=== PATIENT | female | born 1945 | race Caucasian/White ===

== ENCOUNTER → 2016-07-27 | Outpatient (REF) | payer MEDICARE, MEDICAID | LOC: M SFHCLERA 16:01 | PROVIDERS: ATTEND Nurse Practitioner Family | DX: R50.9 Fever, unspecified (principal) ==

== ENCOUNTER → 2016-09-21 | Outpatient (CLI) | payer MEDICARE, MEDICAID ==
--- NOTE | 2016-09-21 15:03 | REP ---
Left knee MRI: The study is performed with proton density T2 and gradient echo weighted data sets in sagittal, axial and coronal projections. Comparison is the plain film study dated 09/09/2016. There is a joint effusion. There is a La's cyst measuring 4.5 cm craniocaudad by 1.8 cm transversely. There is soft tissue edema laterally involving the lateral retinaculum and lateral collateral ligament and subcutaneous soft tissues. This could be from direct trauma or retinacular and lateral collateral ligament sprain or combination. There is T2 signal adjacent to the medial collateral ligament compatible with medial collateral ligament sprain. The quadriceps and patellar tendons are unremarkable. There are suprapatellar plica outlined by the effusion. The anterior posterior cruciate ligaments are unremarkable. The anterior horn of the lateral meniscus is abnormal, decreased in size with T2 signal compatible with partial meniscectomy versus complex tear. Posterior horn of the lateral meniscus and body of the lateral meniscus are unremarkable. The medial meniscus is unremarkable. The patellar articular cartilage is heterogeneous compatible with chondromalacia. The patella is mildly subluxed laterally. The trochlear articular cartilage is unremarkable. The articular cartilage of the medial lateral compartments is unremarkable. Impression: Joint effusion. Abnormal anterior horn of the lateral meniscus compatible with either partial meniscectomy versus complex tear. Lateral retinacular and lateral collateral ligament sprain. Large joint effusion. La's cyst. Suprapatellar plica. Chondromalacia patella and patella is mildly subluxed laterally. Signed by Jermaine Guthrie MD 09/21/2016 02:54 P
== END ==
LOC: M RAD 13:44
PROVIDERS: ATTEND Nurse Practitioner Adult Health
DX: S83.402A Sprain of unspecified collateral ligament of left knee, initial encounter (principal); S83.8X2A Sprain of other specified parts of left knee, initial encounter; M71.22 Synovial cyst of popliteal space [Baker], left knee; M25.862 Other specified joint disorders, left knee; M22.42 Chondromalacia patellae, left knee; M67.52 Plica syndrome, left knee; X58.XXXA Exposure to other specified factors, initial encounter; Y92.9 Unspecified place or not applicable; Y93.9 Activity, unspecified; Y99.9 Unspecified external cause status

== ENCOUNTER → 2019-05-08 | Outpatient (CLI) | payer MEDICARE, MEDICAID ==
--- NOTE | 2019-05-08 13:56 | REP ---
Clinical: Pain. Technique: AP, lateral, bilateral oblique views of the right and left wrist. Findings: Right wrist demonstrates generalized age-related osteopenia and degenerative changes. Moderate arthritic changes at the first carpometacarpal joint and the lateral radial sided carpal bones includes subchondral sclerosis/heterogeneity and associated joint space narrowing. Left wrist demonstrates generalized age-related osteopenia and degenerative changes. Mild arthritic changes along the radial sided carpal bones includes subchondral sclerosis with minimal disc space narrowing and mild arthritic changes at the first carpal metacarpal joint. Impression: Bilateral age-related osteopenia and degenerative changes along with mild/moderate focal arthritic changes along the radial aspect of the bilateral wrists (right greater than left). Electronically Signed by Faheem Altman MD 05/08/2019 01:47 P
--- NOTE | 2019-05-08 13:58 | REP ---
Clinical: Bilateral shoulder pain. Technique: Internal rotation, external rotation, and Y view of the right and left shoulder. Findings: Left shoulder demonstrates cortical irregularity and subtle spurring at the acromioclavicular joint. There is subtle heterogeneous changes along the subcortical humeral head primarily along the greater tuberosity as well as a moderate spur forming along the inferior margin of the humeral neck. Subacromial space is normal. No periarticular calcifications/loose bodies noted. Right shoulder demonstrates cortical irregularity and subtle spurring at the acromioclavicular joint. There is subtle heterogeneous changes along the subcortical humeral head primarily along the greater tuberosity as well as a moderate spur forming along the inferior margin of the humeral neck. Subacromial space is normal. Small periarticular calcification in relation to the greater tuberosity suggests associated mild calcific tendinopathy. Impression: Mild/early moderate bilateral arthritic changes. Electronically Signed by Faheem Altman MD 05/08/2019 01:50 P
--- NOTE | 2019-05-08 14:01 | REP ---
Clinical: Pain. Technique: AP, lateral, swimmers views of the thoracic spine. Findings: Chronic S-shaped scoliosis along with moderate/early advanced osteopenia and multilevel degenerative disc osteophyte complexes are appreciated. No obvious acute fracture / compression injury or subluxation. Impression: Scoliosis, osteopenia and moderate/early advanced multilevel degenerative changes. Electronically Signed by Faheem Altman MD 05/08/2019 01:52 P
--- NOTE | 2019-05-08 14:05 | REP ---
Clinical: Pain. Technique: AP, lateral, bilateral oblique and coned-down views of the lumbosacral spine. Findings: Chronic levoconvex scoliosis, osteopenia and advanced multilevel degenerative disc osteophyte complexes are appreciated. No evidence for acute fracture or subluxation. Impression: Osteopenia with scoliosis and advanced multilevel degenerative spondylosis. Electronically Signed by Faheem Altman MD 05/08/2019 01:57 P
--- NOTE | 2019-05-08 14:06 | REP ---
Clinical: Pain. Cervicalgia. Technique: AP, lateral, flexion/extension, bilateral oblique and open mouth views of the cervical spine. Findings: Lateral view suggests old injury versus congenital malformation of the C1 vertebral body with discontinuous appearance of the anterior and posterior elements. Correlation and CT may be warranted. Remainder examination demonstrates advanced multilevel degenerative disc osteophyte complexes with satisfactory alignment and no evidence for acute fracture / compression injury or subluxation. Impression: 1. Possible old injury or incomplete formation of the C1 ring warrants further evaluation. Consider CT and/or MRI for further investigation. 2. Advanced multilevel degenerative changes. No acute fracture / compression injury or subluxation. Electronically Signed by Faheem Altman MD 05/08/2019 01:57 P
== END ==
LOC: M RAD 12:38
PROVIDERS: ATTEND Nurse Practitioner Adult Health
DX: M51.36 Other intervertebral disc degeneration, lumbar region (principal); M19.011 Primary osteoarthritis, right shoulder; M19.012 Primary osteoarthritis, left shoulder; M50.30 Other cervical disc degeneration, unspecified cervical region; M19.031 Primary osteoarthritis, right wrist; M19.032 Primary osteoarthritis, left wrist; M85.831 Other specified disorders of bone density and structure, right forearm; M85.832 Other specified disorders of bone density and structure, left forearm; M85.88 Other specified disorders of bone density and structure, other site; M47.816 Spondylosis without myelopathy or radiculopathy, lumbar region; M41.34 Thoracogenic scoliosis, thoracic region; M51.34 Other intervertebral disc degeneration, thoracic region

== ENCOUNTER → 2019-05-15 | Outpatient (CLI) | payer MEDICARE, MEDICAID ==
--- NOTE | 2019-05-15 11:41 | REP ---
CT cervical spine: 05/15/2019. Indication: Neck pain. Comparison: Recent cervical spine plain film. Technique: Unenhanced axial CT images of the cervical spine were performed with coronal and sagittal reconstructions provided. Findings: There is no acute fracture, subluxation or dislocation. 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 Multilevel spondylosis is present most pronounced at C5/C6 without severe spinal canal narrowing detected. No lytic or blastic lesions of the cervical spine are present. Impression: No acute osseous injury of the cervical spine. Electronically Signed by Rj Fabian DO 05/15/2019 11:32 A
== END ==
LOC: M RAD 10:36
PROVIDERS: ATTEND Nurse Practitioner Adult Health
DX: M54.2 Cervicalgia (principal); R51 Headache; M47.812 Spondylosis without myelopathy or radiculopathy, cervical region

== ENCOUNTER → 2020-11-20 | Outpatient (CLI) | payer MEDICARE, MEDICAID ==
--- NOTE | 2020-11-20 15:41 | REP ---
INDICATION: SHORTNESS OF BREATH. COMPARISON: Multiple the latest 07/15/2017 TECHNIQUE: PA and lateral FINDINGS: The superior mediastinal structures are midline. The cardiac silhouette is unremarkable in size, shape, and position. The diaphragmatic surfaces of the lungs are regular, and the costophrenic angles are clear. The pulmonary armando are clear. The imaged osseous structures are intact. Note is again made of a hiatal hernia which appears stable. IMPRESSION: There is no acute cardiopulmonary disease. <Electronically signed by Moose Bansal > 11/20/20 1624
== END ==
LOC: M RAD 15:25
PROVIDERS: ATTEND Nurse Practitioner Family
DX: R06.02 Shortness of breath (principal); K44.9 Diaphragmatic hernia without obstruction or gangrene

== ENCOUNTER → 2021-07-14 | Outpatient (CLI) | payer OTHER, MEDICAID | LOC: M PLAIMG 13:02 | PROVIDERS: ATTEND Nurse Practitioner Family | DX: M54.16 Radiculopathy, lumbar region (principal) ==

== ENCOUNTER → 2021-08-29 | Outpatient (CLI) | payer OTHER, MEDICAID ==
[~2021-08-29] MED LIST: ISOVUE-300 61% 50ML VIAL As Ordered ONE; LIDOCAINE 1% MDV 20ML VIAL As Ordered ONE; methylPREDNISolone SUSP 40MG/ML 1ML VIAL (DEPO MEDROL) As Ordered ONE
== END ==
LOC: M RADPRO 10:30
PROVIDERS: ATTEND Physician Assistant Surgical
DX: M16.12 Unilateral primary osteoarthritis, left hip (principal)
CPT/HCPCS: 20610; 77002; J1030; Q9967

== ENCOUNTER 2022-02-13 10:19 | Emergency (ER) | payer OTHER, MEDICAID ==
[~2022-02-13] VITALS: Ht 162.6 cm; Wt 80.7 kg
[2022-02-13 12:29] LABS: ALT/SGPT 32 U/L (12-78); BILIRUBIN,TOTAL 0.6 MG/DL (0.2-1.0); BLOOD UREA NITROGEN 16 MG/DL (7-18); CALCIUM LEVEL 9.5 MG/DL (8.8-10.2); CARBON DIOXIDE LEVEL 30 MEQ/L (21-32); CHLORIDE LEVEL 98 MEQ/L (98-107); CREATININE FOR GFR 0.85 MG/DL (0.55-1.30); GLOMERULAR FILTRATION RATE > 60.0 (>39); GLUCOSE, FASTING 134 MG/DL (70-100); POTASSIUM SERUM 3.1 MEQ/L (3.5-5.1); SODIUM LEVEL 137 MEQ/L (136-145); TOTAL PROTEIN 7.5 GM/DL (6.4-8.2)
[2022-02-13] MEDS ORDERED: VITA250T4 PO (13:26)
[2022-02-13] MEDS ORDERED: POTA-150 PO (13:26)
[2022-02-13] MEDS ORDERED: CHLO125TA PO (13:26)
[2022-02-13] MEDS ORDERED: SIMV40TA20 PO (13:26)
[2022-02-13] MEDS ORDERED: TRAD5TAB PO (13:26)
[2022-02-13] MEDS ORDERED: DULO1CAP5 PO (13:26)
[2022-02-13] MEDS ORDERED: AMIT25TA17 PO ×2 (13:26)
[2022-02-13] MEDS ORDERED: OMEP40CA5 PO (13:26)
[2022-02-13] MEDS ORDERED: ATEN100T PO (13:26)
[2022-02-13] MEDS ORDERED: POTASSIUM CHLORIDE 10MEQ SR TABLET PO ONE (14:50)
[2022-02-13 15:40] VITALS: BP 130/70
== END 2022-02-13 15:41 | disposition home or self-care (01) ==
LOC: M ED 10:19
DX: E87.6 Hypokalemia (principal); E11.9 Type 2 diabetes mellitus without complications; I10 Essential (primary) hypertension; E78.5 Hyperlipidemia, unspecified; Z88.6 Allergy status to analgesic agent; Z79.899 Other long term (current) drug therapy

== ENCOUNTER → 2022-02-16 | Outpatient (CLI) | payer OTHER, MEDICAID ==
[~2022-02-16] MED LIST changes: +AMIT25TA17 PO; +ATEN100T PO; +CHLO125TA PO; +DULO1CAP5 PO; -ISOVUE-300 61% 50ML VIAL As Ordered ONE; -LIDOCAINE 1% MDV 20ML VIAL As Ordered ONE; +OMEP40CA5 PO; +POTA-150 PO; +SIMV40TA20 PO; +TRAD5TAB PO; +VITA250T4 PO; -methylPREDNISolone SUSP 40MG/ML 1ML VIAL (DEPO MEDROL) As Ordered ONE
[2022-02-16 14:55] LABS: BLOOD UREA NITROGEN 13 MG/DL (7-18); CALCIUM LEVEL 9.6 MG/DL (8.8-10.2); CARBON DIOXIDE LEVEL 33 MEQ/L (21-32); CHLORIDE LEVEL 98 MEQ/L (98-107); CREATININE FOR GFR 0.81 MG/DL (0.55-1.30); GLOMERULAR FILTRATION RATE > 60.0 (>39); GLUCOSE, FASTING 114 MG/DL (70-100); POTASSIUM SERUM 3.1 MEQ/L (3.5-5.1); SODIUM LEVEL 136 MEQ/L (136-145)
== END ==
LOC: M LAB 12:39
PROVIDERS: ATTEND Nurse Practitioner Family
DX: E87.6 Hypokalemia (principal)

== ENCOUNTER → 2022-04-23 | Outpatient (CLI) | payer OTHER, MEDICAID | LOC: M PLARAD 11:22 | PROVIDERS: ATTEND Nurse Practitioner Family | DX: J32.2 Chronic ethmoidal sinusitis (principal); R51.9 Headache, unspecified ==

== ENCOUNTER → 2023-05-02 | Outpatient (REF) | payer OTHER, MEDICAID ==
[~2023-05-02] MED LIST changes: -AMIT25TA17 PO; +AMIT25TA19 PO
== END ==
LOC: M LAB REF 19:20
PROVIDERS: ATTEND Physician Assistant
DX: J06.9 Acute upper respiratory infection, unspecified (principal)

== ENCOUNTER → 2023-08-16 | Outpatient (CLI) | payer OTHER, MEDICAID | LOC: M RAD 14:16 | PROVIDERS: ATTEND Registered Nurse | DX: R06.2 Wheezing (principal); K44.9 Diaphragmatic hernia without obstruction or gangrene ==

== ENCOUNTER → 2023-10-12 | Outpatient (CLI) | payer OTHER, MEDICAID ==
[~2023-10-12] MED LIST changes: +VITA250T27 PO; -VITA250T4 PO
== END ==
LOC: M RAD 14:25
PROVIDERS: ATTEND Registered Nurse
DX: M79.672 Pain in left foot (principal); M85.872 Other specified disorders of bone density and structure, left ankle and foot; M19.072 Primary osteoarthritis, left ankle and foot

== ENCOUNTER 2023-10-25 06:03 | Day surgery (SDC) | payer OTHER, MEDICAID ==
[~2023-10-25] VITALS: Ht 162.6 cm; Wt 85.6 kg
[2023-10-25] MEDS: PHENYLEPHRINE 2.5% OPHTH SOL 2ML OD SCH (06:41)
[2023-10-25] MEDS: TETRACAINE 0.5% OPHTH SOLN 4ML OD SCH (06:41)
[2023-10-25] MEDS: ATROPINE SULFATE 1% OPHTH SOLN 2ML BTL OD SCH (06:41)
[2023-10-25] MEDS: FLURBIPROFEN 0.03% OPHTH SOLN 2.5 ML OD SCH (06:42)
[2023-10-25] MEDS ORDERED: fentaNYL 100 MCG/2 ML INJECTION As Ordered ONE (06:58)
[2023-10-25] MEDS ORDERED: MIDAZOLAM INJ 2MG/2ML VIAL As Ordered ONE (06:58)
[2023-10-25] MEDS ORDERED: LR 1,000 ML IV SCH (07:00)
[2023-10-25] MEDS: LIDOCAINE 1% SDV 5ML VIAL As Ordered ONE (07:35)
[2023-10-25] MEDS: CEFUROXIME 1MG/0.1ML INTRACAMERAL INJ As Ordered ONE (07:45)
[2023-10-25 08:08] VITALS: BP 121/79; TEMP 97.5; O2SAT 98
== END 2023-10-25 08:05 | disposition home or self-care (01) ==
LOC: M SDC 06:03
PROVIDERS: ATTEND Ophthalmology
DX: H25.11 Age-related nuclear cataract, right eye (principal); I10 Essential (primary) hypertension; E11.9 Type 2 diabetes mellitus without complications; K21.9 Gastro-esophageal reflux disease without esophagitis; Z88.8 Allergy status to other drugs, medicaments and biological substances; Z79.899 Other long term (current) drug therapy
CPT/HCPCS: 66984; J0697; J2250; J3010; V2632

== ENCOUNTER → 2023-11-16 | Outpatient (CLI) | payer OTHER, MEDICAID ==
[~2023-11-16] MED LIST changes: +ISOVUE-300 61% 100ML VIAL As Ordered ONE; +LIDOCAINE 1% MDV 20ML VIAL As Ordered ONE; +methylPREDNISolone SUSP 40MG/ML 1ML VIAL (DEPO MEDROL) As Ordered ONE
== END ==
LOC: M RAD 14:09
PROVIDERS: ATTEND Physician Assistant Surgical
DX: M16.11 Unilateral primary osteoarthritis, right hip (principal)
CPT/HCPCS: 20610; 77002; J1010; Q9967

== ENCOUNTER → 2024-01-04 | Outpatient (CLI) | payer OTHER, MEDICAID ==
[~2024-01-04] MED LIST changes: -ISOVUE-300 61% 100ML VIAL As Ordered ONE; -LIDOCAINE 1% MDV 20ML VIAL As Ordered ONE; -methylPREDNISolone SUSP 40MG/ML 1ML VIAL (DEPO MEDROL) As Ordered ONE
== END ==
LOC: M RAD 14:32
PROVIDERS: ATTEND Registered Nurse
DX: R07.89 Other chest pain (principal); I51.7 Cardiomegaly; I70.0 Atherosclerosis of aorta; K44.9 Diaphragmatic hernia without obstruction or gangrene

== ENCOUNTER → 2024-02-02 | Outpatient (CLI) | payer OTHER, MEDICAID | LOC: M PLAIMG 14:21 | PROVIDERS: ATTEND Physician Assistant Surgical | DX: M41.9 Scoliosis, unspecified (principal) ==

== ENCOUNTER → 2024-03-15 | Outpatient (CLI) | payer OTHER, MEDICAID | LOC: M PLAIMG 13:55 | PROVIDERS: ATTEND Physical Medicine & Rehabilitation | DX: M47.896 Other spondylosis, lumbar region (principal) ==

== ENCOUNTER → 2024-06-14 | Outpatient (CLI) | payer OTHER, MEDICAID ==
[~2024-06-14] MED LIST changes: +ISOVUE-300 61% 100ML VIAL As Ordered ONE; +LIDOCAINE 1% MDV 20ML VIAL As Ordered ONE; +TRIAMCINOLONE ACETONIDE SUSP 40MG/ML 1ML VIAL As Ordered ONE
== END ==
LOC: M RAD 12:09
PROVIDERS: ATTEND Physician Assistant
DX: M16.0 Bilateral primary osteoarthritis of hip (principal)
CPT/HCPCS: 20610; 77002; J3301; Q9967

== ENCOUNTER → 2024-07-19 | Outpatient (CLI) | payer OTHER, MEDICAID ==
[~2024-07-19] MED LIST changes: +BARIUM SULFATE 700 MG TABLET (E-Z-DISK) As Ordered ONE; +E-Z-PAQUE 96% w/w SUSP 176GM BTL As Ordered ONE; -ISOVUE-300 61% 100ML VIAL As Ordered ONE; -LIDOCAINE 1% MDV 20ML VIAL As Ordered ONE; -TRIAMCINOLONE ACETONIDE SUSP 40MG/ML 1ML VIAL As Ordered ONE; +VARIBAR NECTAR 40% w/v 240ML SUSP BTL As Ordered ONE; +VARIBAR PUDDING 40% w/v 230ML TUBE As Ordered ONE
== END ==
LOC: M RAD 12:31
PROVIDERS: ATTEND Internal Medicine Critical Care Medicine
DX: K44.9 Diaphragmatic hernia without obstruction or gangrene (principal)

== ENCOUNTER 2025-05-17 09:26 | Day surgery (SDC) | payer OTHER, MEDICAID ==
[~2025-05-17] VITALS: Ht 162.6 cm; Wt 83.0 kg
[~2025-05-17 09:26] MED LIST changes: -BARIUM SULFATE 700 MG TABLET (E-Z-DISK) As Ordered ONE; -E-Z-PAQUE 96% w/w SUSP 176GM BTL As Ordered ONE; -VARIBAR NECTAR 40% w/v 240ML SUSP BTL As Ordered ONE; -VARIBAR PUDDING 40% w/v 230ML TUBE As Ordered ONE
[2025-05-17 11:17] VITALS: TEMP 98
[2025-05-17] MEDS ORDERED: GLYCOPYRROLATE INJ 0.2 MG/ML 2 ML VIAL As Ordered ONE (11:28)
[2025-05-17] MEDS ORDERED: LIDOCAINE 2% 100 MG/5 ML SDV (FOR ANES.) As Ordered ONE (11:28)
[2025-05-17 11:39] VITALS: BP 136/91; O2SAT 94
== END 2025-05-17 11:56 | disposition home or self-care (01) ==
LOC: M OPP 09:26
PROVIDERS: ATTEND Surgery
DX: Z12.11 Encounter for screening for malignant neoplasm of colon (principal); D12.6 Benign neoplasm of colon, unspecified; K64.2 Third degree hemorrhoids; K57.30 Diverticulosis of large intestine without perforation or abscess without bleeding; K44.9 Diaphragmatic hernia without obstruction or gangrene; K29.70 Gastritis, unspecified, without bleeding; K30 Functional dyspepsia; Z88.6 Allergy status to analgesic agent; Z88.8 Allergy status to other drugs, medicaments and biological substances; Z79.899 Other long term (current) drug therapy; G47.30 Sleep apnea, unspecified
CPT/HCPCS: 43239; 45385; 88305; J1596